=== PATIENT | female | born 1970 | race Two or more races ===

== ENCOUNTER 2019-10-18 14:11 | Outpatient (CLI) | payer MEDICAID ==
[~2019-10-18] VITALS: Ht 152.4 cm; Wt 67.6 kg
[2019-10-18 16:29] VITALS: BP 116/67
[2019-10-19] MEDS ORDERED: REGLAN10 MG ORAL (11:16)
[2019-10-19] MEDS ORDERED: PANTOPRAZOLE SO40 MG ORAL (11:16)
[2019-10-19] MEDS ORDERED: METHIMAZOLE5 MG PO (11:16)
--- NOTE | 2019-10-19 19:44 | Consultation ---
DATE OF CONSULTATION: 10/18/2019 CONSULTING PHYSICIAN: Vivek Kern MD. CHIEF COMPLAINT: Gastric lesion. HISTORY OF PRESENT ILLNESS: This is a very pleasant 49-year-old female, history of H. pylori positive, status post treatment, apparently who had another endoscopy, found few submucosal lesions there were concerning. So, patient is referred for endoscopy and EUS. PAST MEDICAL HISTORY: 1. H. pylori infection. 2. GERD. 3. Hiatal hernia. 4. Colonic polyps. 5. Hypothyroidism. 6. Inlet patch. PAST SURGICAL HISTORY: Hysterectomy. MEDICATIONS: Please see medication reconciliation list. FAMILY HISTORY: No family history of GI malignancies. SOCIAL HISTORY: Patient denies any tobacco, alcohol, or drug use. ALLERGIES: No known drug allergies. REVIEW OF SYSTEMS: Positive for abdominal pain, GERD, bloating. PHYSICAL EXAMINATION: VITAL SIGNS: Temperature 98.3, blood pressure 116/67, pulse is 90, respirations 20. HEENT: Normocephalic, atraumatic. Sclerae anicteric. NECK: Supple. No evidence of obvious lymphadenopathy. CARDIOVASCULAR: Regular rate and rhythm. Plus S1-S2. LUNGS: Clear to auscultation bilaterally. ABDOMEN: Positive bowel sounds. Soft and nontender. No rebound. No guarding. No peritoneal sign. EXTREMITIES: No cyanosis, no clubbing, no edema. ASSESSMENT AND PLAN: 1. Gastric submucosal lesion. Plan for EGD and EUS when authorization obtained. 2. Chronic GERD. Patient has been on Reglan for long time. We will recommend discontinue Reglan to switch to baclofen at bedtime. Continue on PPI. Vivek Kern M.D. DR: KOKO JOB#: [id number] CC:
== END 2019-10-18 16:11 | disposition home or self-care (01) ==
LOC: PAN 14:11
DX: K31.9 Disease of stomach and duodenum, unspecified (principal); K21.9 Gastro-esophageal reflux disease without esophagitis; E03.9 Hypothyroidism, unspecified; K63.5 Polyp of colon; Z90.710 Acquired absence of both cervix and uterus; R14.0 Abdominal distension (gaseous); R10.9 Unspecified abdominal pain
CPT/HCPCS: G0463